=== PATIENT | male | born 1980 | race Caucasian/White ===

== ENCOUNTER 2020-12-03 23:45 | Inpatient (IN) | payer OTHER ==
[2020-12-04 00:07] VITALS: BMI 24.4
[2020-12-04] MEDS ORDERED: ACETAMINOPHEN 325 MG TABLET (FP) PO PRN ×2 (03:36)
[2020-12-04] MEDS ORDERED: IBUPROFEN 400 MG TABLET (FP) PO PRN (03:36)
[2020-12-04] MEDS ORDERED: MAG HYDROX/AL HYDROX/SIMETH 30 ML UNIT-DOSE CUP PO PRN (03:36)
[2020-12-04] MEDS ORDERED: BISMUTH SUBSALICYLATE 524 MG/30 ML UD PO PRN (03:36)
[2020-12-04] MEDS ORDERED: NICOTINE POLACRILEX 2 MG GUM BUC PRN (03:36)
[2020-12-04] MEDS ORDERED: METHOCARBAMOL 500 MG TABLET PO PRN (03:36)
[2020-12-04] MEDS ORDERED: ONDANSETRON *ODT* 4 MG TABLET SL PRN (03:36)
[2020-12-04] MEDS ORDERED: MENTHOL/PHENOL 1 EACH UD MM PRN (03:36)
[2020-12-04] MEDS ORDERED: MAGNESIUM HYDROX 2400MG/30ML ORAL SUSPENSION 30 ML CUP PO PRN (03:36)
[2020-12-04] MEDS ORDERED: MAGNESIUM CITRATE 300 ML BOTTLE PO PRN (03:36)
[2020-12-04] MEDS: diazePAM 5 MG TABLET PO SCH ×4 (04:17→23:17)
[2020-12-04] MEDS: PRENATAL VITAMINS W/ FOLIC ACID TABLET (FP) PO SCH (10:08)
[2020-12-04] MEDS ORDERED: BUPRENORPHINE/NALOXONE 8 MG/2 MG FILM PACKET SL SCH (10:45)
[2020-12-04 15:10] LABS: HEMATOCRIT 36.2 % (35.4-49); HEMOGLOBIN 12.3 GM/dL (11.7-16.9); MCH 28.3 pg (25.7-33.7); MEAN CELL VOLUME 83.3 fl (80-96); MEAN PLT VOLUME 9.7 fl (7.5-11.1); PLATELET COUNT 189 K/MM3 (134-434); RBC 4.35 M/mm3 (4.00-5.60); RDW 14.3 % (11.9-15.9); WHITE BLOOD COUNT 5.9 K/mm3 (4.0-10.0)
[2020-12-04 15:32] LABS: CALCIUM 8.8 mg/dL (8.5-10.1)
[2020-12-04 15:33] LABS: ALBUMIN 3.7 g/dl (3.4-5.0); BLOOD UREA NITROGEN 17.4 mg/dL (7-18)
[2020-12-04 15:38] LABS: CREATININE 0.9 mg/dL (0.55-1.3)
[2020-12-04 15:41] LABS: BILIRUBIN,TOTAL 0.8 mg/dL (0.2-1)
[2020-12-04] MEDS: diazePAM 5 MG TABLET PO PRN (21:05)
[2020-12-04] MEDS: THIAMINE HCL 100 MG TABLET (FP) PO SCH (21:05)
[2020-12-04] MEDS: MELATONIN 5 MG TABLETS PO SCH (22:05)
[2020-12-05] MEDS: diazePAM 5 MG TABLET PO SCH ×3 (05:29→22:36)
[2020-12-05] MEDS: BUPRENORPHINE/NALOXONE 8 MG/2 MG FILM PACKET SL SCH ×3 (05:29→19:51)
[2020-12-05] MEDS: PRENATAL VITAMINS W/ FOLIC ACID TABLET (FP) PO SCH (10:07)
[2020-12-05] MEDS: diazePAM 5 MG TABLET PO PRN ×3 (10:08→22:26)
[2020-12-05] MEDS: THIAMINE HCL 100 MG TABLET (FP) PO SCH (22:26)
[2020-12-05] MEDS: MELATONIN 5 MG TABLETS PO SCH (22:27)
[2020-12-06] MEDS: diazePAM 5 MG TABLET PO PRN ×4 (01:52→20:57)
[2020-12-06] MEDS: diazePAM 5 MG TABLET PO SCH ×2 (05:39→17:19)
[2020-12-06] MEDS: BUPRENORPHINE/NALOXONE 8 MG/2 MG FILM PACKET SL SCH ×3 (05:39→19:16)
[2020-12-06] MEDS: PRENATAL VITAMINS W/ FOLIC ACID TABLET (FP) PO SCH (10:00)
[2020-12-06] MEDS ORDERED: hydrOXYzine PAMOATE 50 MG CAPSULE (FP) PO PRN (13:35)
[2020-12-06] MEDS ORDERED: QUEtiapine FUMARATE 50 MG TABLET PO SCH (22:00)
[2020-12-06] MEDS: THIAMINE HCL 100 MG TABLET (FP) PO SCH (22:11)
[2020-12-06] MEDS: MELATONIN 5 MG TABLETS PO SCH (22:12)
[2020-12-07] MEDS: diazePAM 5 MG TABLET PO PRN (01:27)
[2020-12-07] MEDS: BUPRENORPHINE/NALOXONE 8 MG/2 MG FILM PACKET SL SCH (05:43)
[2020-12-07] MEDS ORDERED: diazePAM 5 MG TABLET PO ONE (06:00)
[2020-12-07] MEDS ORDERED: MASKS NR ONE (08:31)
[2020-12-07 09:22] VITALS: BP 138/79; PULSE 71; TEMP 97.7
[2020-12-07] MEDS: PRENATAL VITAMINS W/ FOLIC ACID TABLET (FP) PO SCH (10:06)
[2020-12-07 10:11] LABS: SARS-CoV-2 NAA Not Detected (Not Detected)
== END 2020-12-07 12:15 | disposition other institution (70) | DRG 773 ==
LOC: YASAS 23:45 → Y6N 12-04 03:30
PROVIDERS: ADMIT Allergy & Immunology; ATTEND Allergy & Immunology
PROC: HZ2ZZZZ Detoxification Services for Substance Abuse Treatment (ICD-10-PCS; principal; 2020-12-04)
DX: F13.230 Sedative, hypnotic or anxiolytic dependence with withdrawal, uncomplicated (principal); F11.20 Opioid dependence, uncomplicated; F14.20 Cocaine dependence, uncomplicated; F12.20 Cannabis dependence, uncomplicated; F17.210 Nicotine dependence, cigarettes, uncomplicated; F19.280 Other psychoactive substance dependence with psychoactive substance-induced anxiety disorder; F19.282 Other psychoactive substance dependence with psychoactive substance-induced sleep disorder; F19.24 Other psychoactive substance dependence with psychoactive substance-induced mood disorder; G40.909 Epilepsy, unspecified, not intractable, without status epilepticus
CPT/HCPCS: 36415; 80053; 85027; 86780; 93005; 93010; C9803; U0003; U0005

== ENCOUNTER 2020-12-07 12:18 | Inpatient (IN) | payer OTHER ==
[2020-12-07] MEDS ORDERED: P-EPHED 60MG/TRIPROLIDI 2.5MG TABLET PO PRN (14:14)
[2020-12-07] MEDS ORDERED: guaiFENesin 200 MG/10 ML 10 ML UNIT-DOSE CUPS PO PRN (14:14)
[2020-12-07] MEDS ORDERED: NICOTINE POLACRILEX 2 MG GUM BUC PRN (14:14)
[2020-12-07] MEDS ORDERED: LOPERAMIDE HCL 2 MG CAPSULE PO PRN (14:14)
[2020-12-07] MEDS ORDERED: MENTHOL/PHENOL 1 EACH UD MM PRN (14:14)
[2020-12-07] MEDS ORDERED: MAGNESIUM CITRATE 300 ML BOTTLE PO PRN (14:14)
[2020-12-07] MEDS ORDERED: MAGNESIUM HYDROX 2400MG/30ML ORAL SUSPENSION 30 ML CUP PO PRN (14:14)
[2020-12-07] MEDS: BUPRENORPHINE/NALOXONE 8 MG/2 MG FILM PACKET SL SCH ×2 (15:02→21:13)
[2020-12-07] MEDS: THIAMINE HCL 100 MG TABLET (FP) PO SCH (21:13)
[2020-12-07] MEDS: MELATONIN 5 MG TABLETS PO SCH (21:14)
[2020-12-07] MEDS: hydrOXYzine PAMOATE 25 MG CAPSULE (FP) PO PRN (21:14)
[2020-12-07] MEDS ORDERED: SUBOXONE SL SCH (22:00)
[2020-12-08] MEDS: ACETAMINOPHEN 325 MG TABLET (FP) PO PRN ×2 (06:09→15:43)
[2020-12-08] MEDS: BUPRENORPHINE/NALOXONE 8 MG/2 MG FILM PACKET SL SCH ×3 (06:10→21:09)
[2020-12-08] MEDS: PRENATAL VITAMINS W/ FOLIC ACID TABLET (FP) PO SCH (09:25)
[2020-12-08] MEDS: NICOTINE 7 MG/24 HOURS TOPICAL PATCH TD SCH (09:25)
[2020-12-08] MEDS: THIAMINE HCL 100 MG TABLET (FP) PO SCH (21:08)
[2020-12-08] MEDS: MELATONIN 5 MG TABLETS PO SCH (21:08)
[2020-12-08] MEDS ORDERED: QUEtiapine FUMARATE 50 MG TABLET PO SCH (22:00)
[2020-12-09] MEDS: BUPRENORPHINE/NALOXONE 8 MG/2 MG FILM PACKET SL SCH ×3 (06:29→21:30)
[2020-12-09] MEDS: ACETAMINOPHEN 325 MG TABLET (FP) PO PRN (06:29)
[2020-12-09] MEDS ORDERED: COLLOIDAL OATMEAL 1 BAR EACH TP PRN (09:50)
[2020-12-09] MEDS: PRENATAL VITAMINS W/ FOLIC ACID TABLET (FP) PO SCH (09:52)
[2020-12-09] MEDS: NICOTINE 7 MG/24 HOURS TOPICAL PATCH TD SCH (09:52)
[2020-12-09] MEDS: IBUPROFEN 400 MG TABLET (FP) PO PRN ×2 (09:53→18:07)
[2020-12-09] MEDS: hydrOXYzine PAMOATE 25 MG CAPSULE (FP) PO PRN ×4 (09:53→22:11)
[2020-12-09] MEDS: MELATONIN 5 MG TABLETS PO SCH (21:30)
[2020-12-09] MEDS: THIAMINE HCL 100 MG TABLET (FP) PO SCH (21:30)
[2020-12-10] MEDS: hydrOXYzine PAMOATE 25 MG CAPSULE (FP) PO PRN ×4 (02:03→14:54)
[2020-12-10] MEDS: BUPRENORPHINE/NALOXONE 8 MG/2 MG FILM PACKET SL SCH ×3 (06:14→21:20)
[2020-12-10] MEDS: PRENATAL VITAMINS W/ FOLIC ACID TABLET (FP) PO SCH (09:43)
[2020-12-10] MEDS: NICOTINE 7 MG/24 HOURS TOPICAL PATCH TD SCH (09:43)
[2020-12-10] MEDS: busPIRone HCL 10 MG TABLET (FP) PO SCH ×2 (12:00→21:20)
[2020-12-10] MEDS: THIAMINE HCL 100 MG TABLET (FP) PO SCH (21:20)
[2020-12-10] MEDS: QUEtiapine FUMARATE 50 MG TABLET PO PRN (21:20)
[2020-12-10] MEDS: MELATONIN 5 MG TABLETS PO SCH (21:52)
[2020-12-11] MEDS: hydrOXYzine PAMOATE 25 MG CAPSULE (FP) PO PRN ×3 (06:40→16:04)
[2020-12-11] MEDS: BUPRENORPHINE/NALOXONE 8 MG/2 MG FILM PACKET SL SCH ×3 (06:40→21:12)
[2020-12-11] MEDS: PRENATAL VITAMINS W/ FOLIC ACID TABLET (FP) PO SCH (09:41)
[2020-12-11] MEDS: busPIRone HCL 10 MG TABLET (FP) PO SCH ×2 (09:42→21:12)
[2020-12-11] MEDS: NICOTINE 7 MG/24 HOURS TOPICAL PATCH TD SCH (09:42)
[2020-12-11] MEDS: THIAMINE HCL 100 MG TABLET (FP) PO SCH (21:12)
[2020-12-11] MEDS: MELATONIN 5 MG TABLETS PO SCH (21:12)
[2020-12-11] MEDS: QUEtiapine FUMARATE 50 MG TABLET PO PRN (21:13)
[2020-12-12] MEDS: hydrOXYzine PAMOATE 25 MG CAPSULE (FP) PO PRN ×5 (02:51→20:38)
[2020-12-12] MEDS: BUPRENORPHINE/NALOXONE 8 MG/2 MG FILM PACKET SL SCH ×3 (06:43→21:14)
[2020-12-12] MEDS: busPIRone HCL 10 MG TABLET (FP) PO SCH ×2 (09:34→21:11)
[2020-12-12] MEDS: PRENATAL VITAMINS W/ FOLIC ACID TABLET (FP) PO SCH (09:34)
[2020-12-12] MEDS: NICOTINE 7 MG/24 HOURS TOPICAL PATCH TD SCH (09:34)
[2020-12-12 10:07] LABS: SARS-CoV-2 NAA Not Detected (Not Detected)
[2020-12-12] MEDS: IBUPROFEN 400 MG TABLET (FP) PO PRN (13:19)
[2020-12-12] MEDS: THIAMINE HCL 100 MG TABLET (FP) PO SCH (21:11)
[2020-12-12] MEDS: QUEtiapine FUMARATE 50 MG TABLET PO PRN (21:11)
[2020-12-12] MEDS: MELATONIN 5 MG TABLETS PO SCH (21:12)
[2020-12-13] MEDS: hydrOXYzine PAMOATE 25 MG CAPSULE (FP) PO PRN ×4 (01:31→17:17)
[2020-12-13] MEDS: BUPRENORPHINE/NALOXONE 8 MG/2 MG FILM PACKET SL SCH ×3 (06:08→21:42)
[2020-12-13] MEDS: PRENATAL VITAMINS W/ FOLIC ACID TABLET (FP) PO SCH (09:30)
[2020-12-13] MEDS: NICOTINE 7 MG/24 HOURS TOPICAL PATCH TD SCH (09:30)
[2020-12-13] MEDS: busPIRone HCL 10 MG TABLET (FP) PO SCH ×2 (09:31→21:41)
[2020-12-13] MEDS: MAG HYDROX/AL HYDROX/SIMETH 30 ML UNIT-DOSE CUP PO PRN (09:31)
[2020-12-13] MEDS: MELATONIN 5 MG TABLETS PO SCH (21:41)
[2020-12-13] MEDS: THIAMINE HCL 100 MG TABLET (FP) PO SCH (21:41)
[2020-12-14] MEDS: hydrOXYzine PAMOATE 25 MG CAPSULE (FP) PO PRN ×5 (01:55→18:57)
[2020-12-14] MEDS: BUPRENORPHINE/NALOXONE 8 MG/2 MG FILM PACKET SL SCH ×3 (06:07→21:49)
[2020-12-14] MEDS: PRENATAL VITAMINS W/ FOLIC ACID TABLET (FP) PO SCH (09:29)
[2020-12-14] MEDS: busPIRone HCL 10 MG TABLET (FP) PO SCH ×2 (09:29→21:46)
[2020-12-14] MEDS: IBUPROFEN 400 MG TABLET (FP) PO PRN ×2 (09:30→18:57)
[2020-12-14] MEDS: NICOTINE 7 MG/24 HOURS TOPICAL PATCH TD SCH (09:30)
[2020-12-14] MEDS: THIAMINE HCL 100 MG TABLET (FP) PO SCH (21:46)
[2020-12-14] MEDS: QUEtiapine FUMARATE 50 MG TABLET PO PRN (21:46)
[2020-12-14] MEDS: MELATONIN 5 MG TABLETS PO SCH (21:46)
[2020-12-15] MEDS: hydrOXYzine PAMOATE 25 MG CAPSULE (FP) PO PRN ×5 (01:31→21:13)
[2020-12-15] MEDS: BUPRENORPHINE/NALOXONE 8 MG/2 MG FILM PACKET SL SCH ×3 (06:14→21:13)
[2020-12-15] MEDS: busPIRone HCL 10 MG TABLET (FP) PO SCH ×2 (09:48→21:13)
[2020-12-15] MEDS: PRENATAL VITAMINS W/ FOLIC ACID TABLET (FP) PO SCH (09:48)
[2020-12-15] MEDS: IBUPROFEN 400 MG TABLET (FP) PO PRN (09:48)
[2020-12-15] MEDS: NICOTINE 7 MG/24 HOURS TOPICAL PATCH TD SCH (09:48)
[2020-12-15] MEDS: ACETAMINOPHEN 325 MG TABLET (FP) PO PRN (14:17)
[2020-12-15] MEDS: QUEtiapine FUMARATE 50 MG TABLET PO PRN (21:13)
[2020-12-15] MEDS: MELATONIN 5 MG TABLETS PO SCH (21:13)
[2020-12-15] MEDS: THIAMINE HCL 100 MG TABLET (FP) PO SCH (21:13)
[2020-12-16] MEDS: hydrOXYzine PAMOATE 25 MG CAPSULE (FP) PO PRN ×5 (01:23→19:50)
[2020-12-16] MEDS: IBUPROFEN 400 MG TABLET (FP) PO PRN ×2 (03:49→09:41)
[2020-12-16] MEDS: BUPRENORPHINE/NALOXONE 8 MG/2 MG FILM PACKET SL SCH ×3 (07:17→21:36)
[2020-12-16] MEDS: PRENATAL VITAMINS W/ FOLIC ACID TABLET (FP) PO SCH (09:41)
[2020-12-16] MEDS: busPIRone HCL 10 MG TABLET (FP) PO SCH ×2 (09:41→21:36)
[2020-12-16] MEDS: NICOTINE 7 MG/24 HOURS TOPICAL PATCH TD SCH (10:33)
[2020-12-16] MEDS: ACETAMINOPHEN 325 MG TABLET (FP) PO PRN (14:01)
[2020-12-16] MEDS: THIAMINE HCL 100 MG TABLET (FP) PO SCH (21:36)
[2020-12-16] MEDS: MELATONIN 5 MG TABLETS PO SCH (21:36)
[2020-12-16] MEDS: QUEtiapine FUMARATE 50 MG TABLET PO PRN (21:36)
[2020-12-17] MEDS: hydrOXYzine PAMOATE 25 MG CAPSULE (FP) PO PRN ×4 (01:49→18:05)
[2020-12-17] MEDS: BUPRENORPHINE/NALOXONE 8 MG/2 MG FILM PACKET SL SCH ×4 (06:04→22:48)
[2020-12-17] MEDS: IBUPROFEN 400 MG TABLET (FP) PO PRN ×2 (06:05→12:50)
[2020-12-17] MEDS ORDERED: MASKS NR ONE (07:18)
[2020-12-17] MEDS: PRENATAL VITAMINS W/ FOLIC ACID TABLET (FP) PO SCH (09:57)
[2020-12-17] MEDS: NICOTINE 7 MG/24 HOURS TOPICAL PATCH TD SCH (09:57)
[2020-12-17] MEDS: busPIRone HCL 10 MG TABLET (FP) PO SCH ×3 (09:57→22:50)
[2020-12-17] MEDS: MAG HYDROX/AL HYDROX/SIMETH 30 ML UNIT-DOSE CUP PO PRN (10:32)
[2020-12-17] MEDS: ACETAMINOPHEN 325 MG TABLET (FP) PO PRN (18:04)
[2020-12-17] MEDS: THIAMINE HCL 100 MG TABLET (FP) PO SCH ×2 (21:33→22:51)
[2020-12-17] MEDS: MELATONIN 5 MG TABLETS PO SCH ×2 (21:33→22:53)
[2020-12-17] MEDS: QUEtiapine FUMARATE 100 MG TABLET (FP) PO PRN (22:51)
[2020-12-18] MEDS: PRENATAL VITAMINS W/ FOLIC ACID TABLET (FP) PO SCH (10:04)
[2020-12-18] MEDS: BUPRENORPHINE/NALOXONE 8 MG/2 MG FILM PACKET SL SCH ×2 (10:04→18:01)
[2020-12-18] MEDS: NICOTINE 7 MG/24 HOURS TOPICAL PATCH TD SCH (10:06)
[2020-12-18] MEDS: busPIRone HCL 10 MG TABLET (FP) PO SCH ×2 (10:06→21:13)
[2020-12-18] MEDS: IBUPROFEN 400 MG TABLET (FP) PO PRN (14:37)
[2020-12-18] MEDS: hydrOXYzine PAMOATE 25 MG CAPSULE (FP) PO PRN ×2 (14:38→21:13)
[2020-12-18] MEDS: THIAMINE HCL 100 MG TABLET (FP) PO SCH (21:13)
[2020-12-18] MEDS: MELATONIN 5 MG TABLETS PO SCH (21:13)
[2020-12-18] MEDS: QUEtiapine FUMARATE 100 MG TABLET (FP) PO PRN (21:13)
[2020-12-19] MEDS: hydrOXYzine PAMOATE 25 MG CAPSULE (FP) PO PRN (05:55)
[2020-12-19 07:14] VITALS: TEMP 97.9
[2020-12-19] MEDS: busPIRone HCL 10 MG TABLET (FP) PO SCH (09:08)
[2020-12-19] MEDS: NICOTINE 7 MG/24 HOURS TOPICAL PATCH TD SCH (09:08)
[2020-12-19] MEDS: PRENATAL VITAMINS W/ FOLIC ACID TABLET (FP) PO SCH (09:08)
[2020-12-19] MEDS ORDERED: BUPRENORPHINE/NALOXONE 8 MG/2 MG FILM PACKET SL SCH (10:00)
[2020-12-19 10:22] VITALS: BP 127/68; PULSE 95
== END 2020-12-19 09:15 | disposition home or self-care (01) | DRG 772 ==
LOC: YASAS 12:18 → Y5N 12:19
PROVIDERS: ADMIT Allergy & Immunology; ATTEND Allergy & Immunology
PROC: HZ42ZZZ Group Counseling for Substance Abuse Treatment, Cognitive-Behavioral (ICD-10-PCS; principal; 2020-12-07)
DX: F11.20 Opioid dependence, uncomplicated (principal); F14.20 Cocaine dependence, uncomplicated; F13.20 Sedative, hypnotic or anxiolytic dependence, uncomplicated; F12.20 Cannabis dependence, uncomplicated; F19.282 Other psychoactive substance dependence with psychoactive substance-induced sleep disorder; F19.280 Other psychoactive substance dependence with psychoactive substance-induced anxiety disorder; F32.9 Major depressive disorder, single episode, unspecified; F41.9 Anxiety disorder, unspecified; Z56.0 Unemployment, unspecified
CPT/HCPCS: C9803; U0003; U0005